=== PATIENT | female | born 1970 | race Caucasian/White ===

== ENCOUNTER → 2020-10-22 | Outpatient (CLI) | payer BC ==
[~2020-10-22] MED LIST: BUDESONIDE0.5 MG/2 M NEB; CRESTOR40 MG PO; CYMBALTA60 MG PO; DECADRON6 MG PO; DOXYCYCLINE HY100 MG PO; ETODOLAC400 MG PO; GLUCOPHAGE 500500 MG PO; TENORMIN50 MG PO; TESSALON PERLE100 MG PO; THERAGRAN M TAB1 EA PO; TRAMADOL HCL50 MG PO; TRAZODONE HCL50 MG PO; ZETIA10 MG PO
[2020-10-22 10:03] LABS: HEMOGLOBIN 13.8 gm/dl (12.3-15.3); RED BLOOD COUNT 4.48 M/UL (4.00-5.10); WHITE BLOOD COUNT 8.9 K/UL (4.5-11.0)
[2020-10-22 10:47] LABS: BUN/CREATININE RATIO 19 (0-10)
[2020-10-23 10:51] LABS: CREATININE, URINE 150.4 mg/dL (Not Estab.)
== END ==
LOC: LAB 09:26
PROVIDERS: Internal Medicine
DX: E11.9 Type 2 diabetes mellitus without complications (principal); R53.83 Other fatigue; E78.5 Hyperlipidemia, unspecified; I10 Essential (primary) hypertension; Z79.899 Other long term (current) drug therapy; Z51.81 Encounter for therapeutic drug level monitoring
CPT/HCPCS: 80053; 80061; 82043; 82570; 82607; 82746; 83036; 84439; 84443; 85025

== ENCOUNTER → 2021-01-20 | Outpatient (CLI) | payer BC | LOC: US 11:59 | DX: Z12.31 Encounter for screening mammogram for malignant neoplasm of breast (principal); M79.661 Pain in right lower leg; M79.604 Pain in right leg | CPT/HCPCS: 77063; 77067; 93971 ==

== ENCOUNTER → 2021-03-17 | Outpatient (CLI) | payer BC ==
[2021-03-17 10:06] LABS: HEMOGLOBIN 13.4 gm/dl (12.3-15.3); RED BLOOD COUNT 4.53 M/UL (4.00-5.10)
[2021-03-17 10:34] LABS: BUN/CREATININE RATIO 30 (0-10)
[2021-03-18 08:14] LABS: ESTRADIOL 15.4 pg/mL (.); FSH 38.6 mIU/mL (.); LUTEINIZING HORMONE(LH) 28.5 mIU/mL (.); VITAMIN D, 25-HYDROXY 35.6 ng/mL (30.0-100.0)
== END ==
LOC: LAB 09:23
PROVIDERS: Internal Medicine
DX: Z51.81 Encounter for therapeutic drug level monitoring (principal); E11.9 Type 2 diabetes mellitus without complications; R53.83 Other fatigue; E78.5 Hyperlipidemia, unspecified; I10 Essential (primary) hypertension; Z79.899 Other long term (current) drug therapy
CPT/HCPCS: 36415; 80053; 80061; 82088; 82607; 82670; 82746; 83001; 83002; 83036; 83835; 84244; 84439; 84443; 85025

== ENCOUNTER → 2021-03-21 | Outpatient (CLI) | payer BC | LOC: LAB 09:11 | DX: Z51.81 Encounter for therapeutic drug level monitoring (principal); E11.9 Type 2 diabetes mellitus without complications; I10 Essential (primary) hypertension; E78.5 Hyperlipidemia, unspecified; R53.83 Other fatigue; Z79.899 Other long term (current) drug therapy | CPT/HCPCS: 83497 ==

== ENCOUNTER → 2021-03-30 | Outpatient (CLI) | payer BC | LOC: EXRD 07:48 | DX: I10 Essential (primary) hypertension (principal) | CPT/HCPCS: 93975 ==

== ENCOUNTER → 2021-05-19 | Outpatient (CLI) | payer BC | LOC: HEART 5 08:00 | DX: I20.8 Other forms of angina pectoris (principal); R06.02 Shortness of breath; E11.9 Type 2 diabetes mellitus without complications; I08.1 Rheumatic disorders of both mitral and tricuspid valves | CPT/HCPCS: 78452; 93306; A9502 ==

== ENCOUNTER → 2021-07-15 | Outpatient (CLI) | payer BC ==
[~2021-07-15] MED LIST changes: +BACLOFEN10 MG PO; +DULOXETINE HCL60 MG PO; +HYDROCHLOROTHIA25 MG PO; +ISMO TAB 20 MG20 MG PO; +LOSARTAN POTASS50 MG PO; +OZEMPIC0.25 MG/0. SQ
== END ==
LOC: CATH 06:36
DX: I25.118 Atherosclerotic heart disease of native coronary artery with other forms of angina pectoris (principal); I10 Essential (primary) hypertension; E11.9 Type 2 diabetes mellitus without complications; Z79.899 Other long term (current) drug therapy
CPT/HCPCS: 82962; 99152; C1769; C1887; C1894; J1644; J2250; J3010; J7030; Q9967